=== PATIENT | male | born 1995 | race Two or more races ===

== ENCOUNTER 2019-03-04 17:14 | Emergency (ER) | payer MEDICAID ==
[~2019-03-04] VITALS: Ht 165.1 cm; Wt 77.1 kg
[2019-03-04 17:18] VITALS: BP 113/75
[2019-03-04] MEDS ORDERED: NKM (17:20)
--- NOTE | 2019-03-04 17:28 | NUR ---
ED Nurse Note: Pt came in S/P fall at work. Pt slipped and fell and hit his head on the floor. C/O Nausea and dizziness. Denies episodes of vomiting. Noted a small bump on posterior head. Pt is AAO x4, ambulates with steady gait.
--- NOTE | 2019-03-04 17:30 | NUR ---
ED Nurse Note: Pt taken to CT.
--- NOTE | 2019-03-04 17:37 | NUR ---
ED Nurse Note: Pt back from CT.
--- NOTE | 2019-03-04 18:10 | Emergency Room Report ---
History of Present Illness General Chief Complaint: Multiple Trauma/Fall Source: Patient Present Illness HPI 23-year-old male with no significant past medical history here complaining of headache, dizziness, nausea post fall on the back of his head at work times 3 hours ago. Patient denies loss of consciousness, blurred vision, vomiting, memory loss. The fall happened at work as patient and hit the back of his head and he was observed by coworkers. Does not eat anything after the injury and has not taken any medication for pain. As all other injuries, S OB, chest pain , position, neurological deficit eyes nosebleed Allergies: Coded Allergies: No Known Allergies (Unverified , 03/04/19) Patient History Past Surgical History: unable to obtain Pertinent Family History: none Immunizations: UTD Reviewed Nursing Documentation: PMH: Agreed; PSxH: Agreed Nursing Documentation-PMH Past Medical History: No Stated History Review of Systems All Other Systems: negative except mentioned in HPI Physical Exam Vital Signs Date Time Temp Pulse Resp B/P (MAP) Pulse Ox O2 Delivery O2 Flow Rate FiO2 03/04/19 17:18 98.1 72 15 113/75 96 Sp02 EP Interpretation: reviewed, normal General Appearance: normal inspection, no apparent distress, alert, GCS 15, non -toxic Head: normocephalic, other - Contusion on left occipital Eyes: bilateral eye normal inspection, bilateral eye PERRL, bilateral eye other - No nystagmus ENT: normal ENT inspection, hearing grossly normal, normal pharynx Neck: normal inspection, supple, thyroid normal, no bony tend Respiratory: normal inspection, chest non-tender, normal breath sounds, no rhonchi Cardiovascular #1: normal inspection, no gallop, no murmur Gastrointestinal: normal inspection, soft Musculoskeletal: back normal, digits/nails normal, gait/station normal, other - contusion left occipital Neurologic: normal inspection, alert, oriented x3, responsive, normal gait, speech normal Psychiatric: normal inspection, judgement/insight normal, memory normal Skin: normal inspection, normal color, no rash, well hydrated Lymphatic: normal inspection, no adenopathy Medical Decision Making PA Attestation Diagnosis and treatment plans were reviewed and discussed with my supervising physician Dr. Russo Diagnostic Impression: Primary Impression: Concussion ER Course 23-year-old male with no significant past medical history here complaining of headache, dizziness, nausea post fall on the back of his head at work times 3 hours ago. Patient denies loss of consciousness, blurred vision, vomiting, memory loss. The fall happened at work as patient and hit the back of his head and he was observed by coworkers. Does not eat anything after the injury and has not taken any medication for pain. As all other injuries, S OB, chest pain , position, neurological deficit eyes nosebleed Ddx considered but are not limited to cererbral hematoma, concussion Vital signs: are WNL, pt. is afebrile H&PE are most consistent with concussion ORders: head CT no contrast, tylenol 500mg, zofran ED INTERVENTIONS: None required at this time. DISCHARGE: At this time pt. is stable for d/c to home. Will provide printed patient care instructions, and any necessary prescriptions. Care plan and follow up instructions have been discussed with the patient prior to discharge. Avoid prolonged exposure to monitors and screens, follow with primary care provider if symptoms continue mental rest recommended CT/MRI/US Diagnostic Results CT/MRI/US Diagnostic Results : Imaging Test Ordered: head CT no contrast Impression CT HEAD Without Contrast: CT Head - Noncontrast Comparison: None Available Findings: No evidence of acute transcortical cerebral infarction or intracranial hemorrhage. No abnormal mass effect or midline shift. No acute extra-axial collections. Probable small left anterior temporal arachnoid cyst. No skull fracture identified. IMPRESSION: No evidence of acute intracranial abnormality. Last Vital Signs Date Time Temp Pulse Resp B/P (MAP) Pulse Ox O2 Delivery O2 Flow Rate FiO2 03/04/19 17:27 72 15 03/04/19 17:18 98.1 113/75 96 Disposition: HOME, SELF-CARE Condition: Stable Patient Instructions: Concussion, Adult, [id number] Additional Instructions: Follow-up with a primary care provider for further assessment of concussion, have mental rest for 2 days avoid strenuous physical activity Leslie Tong Mar 04, 2019 18:10
[2019-03-04] MEDS ORDERED: ZOFRAN4 M3 ORAL (18:22)
[2019-03-04] MEDS ORDERED: TYLENOL EXTRA500 MG ORAL (18:22)
[2019-03-04 18:43] VITALS: BP 121/80
--- NOTE | 2019-03-04 18:43 | NUR ---
ER DISCHARGE NOTE: Patient is cleared to be discharged per PA, pt is aox4, on room air, with stable vital signs. pt was given dc and prescription instructions, pt was able to verbalize understanding, pt id band removed. pt is able to ambulate with steady gait. pt took all belongings and left with all belongings.
--- NOTE | 2019-03-05 14:02 | Diagnostic Imaging Report ---
Indication: Head trauma, pain, status post fall Technique: Continuous helical CT scanning of the head was performed without intravenous contrast material. Axial and coronal 5 mm sections were generated. Radiation dose was minimized using automated exposure control Dose: Total Dose Length Product - DLP 1407.[address] Dose Index - CTDIvol(s) 70.38 mGy. Comparison: none Findings: The ventricular system is normal in size and configuration. There is no shift of midline structures. No abnormal extra-axial fluid collections are noted. There is no evidence of intracerebral bleeding. No other abnormal high or low density areas are noted within the brain. Visualized orbits and sinuses are unremarkable. The calvarium is intact. Normal guallpa-white differentiation. Impression: Normal CT scan of the head without contrast material. This agrees with the preliminary interpretation provided overnight by [facility]. The CT scanner at [facility] is accredited by the [employer] and the scans are performed using protocols designed to limit radiation exposure to as low as reasonably achievable to attain images of sufficient resolution adequate for diagnostic evaluation.
== END 2019-03-04 18:43 | disposition home or self-care (01) ==
LOC: EMR 17:50
DX: S06.0X9A Concussion with loss of consciousness of unspecified duration, initial encounter (principal); W19.XXXA Unspecified fall, initial encounter; Y92.9 Unspecified place or not applicable; Y99.0 Civilian activity done for income or pay; R11.0 Nausea
CPT/HCPCS: 70450; 99284

== ENCOUNTER 2019-05-14 01:47 | Emergency (ER) | payer MEDICAID ==
[~2019-05-14] VITALS: Ht 167.6 cm; Wt 79.4 kg
[~2019-05-14 01:47] MED LIST: NKM; TYLENOL EXTRA500 MG ORAL; ZOFRAN4 M3 ORAL
--- NOTE | 2019-05-14 01:58 | NUR ---
ED Nurse Note: pt came to ed c/o R eye pain x 1 day 09/06 pt statse he took 500mg tylenol earlier today and it helped a little bit. pt states s/s began during work. eye pain is a pulsating senation.
[2019-05-14 02:00] VITALS: BP 111/71
[2019-05-14] MEDS ORDERED: HYDROcodone/Acetamin 5/325 tab ORAL ONE (02:15)
[2019-05-14] MEDS ORDERED: HYDROcodone/Acetamin 5/325 tab ONE (02:17)
--- NOTE | 2019-05-14 02:17 | Emergency Room Report ---
History of Present Illness General Chief Complaint: Eye Problems Source: Patient Present Illness HPI This is a 23-year-old male with no past medical history. He presents with chief complaint of right-sided headache and eye pain. Onset was at work. Pain was throbbing in nature. He took some Tylenol got better. When he came home it got worse. Pain is throbbing in nature. Behind his right eye. Pain radiates up to the forehead and eyebrow area. Throbbing in nature. Also with tearing. Worse with lights. No nausea no vomiting. No fever chills. Pain is 8 out of 10. No focal deficit. Never had this problem before. Onset was gradual. Allergies: Coded Allergies: No Known Allergies (Unverified , 03/04/19) Patient History Past Medical History: see triage record, old chart reviewed Past Surgical History: none Pertinent Family History: none Social History: Denies: smoking Immunizations: other Reviewed Nursing Documentation: PMH: Agreed; PSxH: Agreed Nursing Documentation-PMH Past Medical History: No Stated History Review of Systems Eye: Denies: eye pain, blurred vision ENT: Denies: ear pain, nose congestion, throat swelling Respiratory: Denies: cough, shortness of breath Cardiovascular: Denies: chest pain, palpitations Gastrointestinal: Denies: abdominal pain, diarrhea, nausea, vomiting Musculoskeletal: Denies: back pain, joint pain Skin: Denies: rash Neurological: Reports: headache; Denies: numbness Endocrine: Denies: increased thirst, increased urine Hematologic/Lymphatic: Denies: easy bruising All Other Systems: negative except mentioned in HPI Physical Exam Vital Signs Date Time Temp Pulse Resp B/P (MAP) Pulse Ox O2 Delivery O2 Flow Rate FiO2 05/14/19 01:50 98.6 79 18 111/71 (84) 95 Vitals normal Sp02 EP Interpretation: reviewed, normal General Appearance: well appearing, no apparent distress, alert Head: normocephalic, atraumatic Eyes: right eye other - Mild injection of conjunctiva; bilateral eye PERRL, bilateral eye EOMI ENT: hearing grossly normal, normal pharynx Neck: full range of motion, supple, no meningismus Respiratory: chest non-tender, lungs clear, normal breath sounds Cardiovascular #1: regular rate, rhythm, no murmur Gastrointestinal: normal bowel sounds, non tender, no mass, no organomegaly, no bruit, non-distended Musculoskeletal: back normal, gait/station normal, normal range of motion Psychiatric: mood/affect normal Skin: warm/dry Medical Decision Making Diagnostic Impression: Primary Impression: Headache Qualified Codes: R51 - Headache Additional Impression: Sinusitis, acute Qualified Codes: J01.90 - Acute sinusitis, unspecified ER Course Patient presents with headache and eye pain. No evidence of bleed or meningitis. No neoplastic process. Better after my pain meds. CT scan showed diffuse pain sinusitis. Will discharge home. CT/MRI/US Diagnostic Results CT/MRI/US Diagnostic Results : Imaging Test Ordered: CT head Impression Read by radiologist. Diffuse sinusitis. Last Vital Signs Date Time Temp Pulse Resp B/P (MAP) Pulse Ox O2 Delivery O2 Flow Rate FiO2 05/14/19 02:00 98.6 79 18 111/71 95 Status: improved Disposition: HOME, SELF-CARE Condition: Stable Scripts Pseudoephedrine Hcl* (SUDAFED*) 60 Mg Tablet 60 MG PO Q6H, #30 TAB Prov: Abdirahman Wilkinson MD 05/14/19 Amoxicillin/Potassium Clav 875-125* (AUGMENTIN 875-125 TABLET*) 1 Each Tablet 1 TAB ORAL TWICE A DAY, #28 TAB Prov: Abdirahman Wilkinson MD 05/14/19 Ibuprofen* (MOTRIN*) 600 Mg Tablet 600 MG ORAL THREE TIMES A DAY, #30 TAB 0 Refills Prov: Abdirahman Wilkinson MD 05/14/19 Referrals: [facility],REFERRING (PCP) Additional Instructions: Follow-up with your doctor in 7 days. Return if worse. Abdirahman Wilkinson MD May 14, 2019 02:17
--- NOTE | 2019-05-14 02:29 | NUR ---
ED Nurse Note: pt went to ct
[2019-05-14] MEDS ORDERED: IBUPROFEN600 MG ORAL (02:34)
[2019-05-14] MEDS ORDERED: PSEUDOEPHEDRINE60 MG PO (03:22)
[2019-05-14] MEDS ORDERED: AUGMENTIN 875-1 EAC1 ORAL (03:22)
[2019-05-14 03:30] VITALS: BP 111/71
--- NOTE | 2019-05-14 03:30 | NUR ---
ER DISCHARGE NOTE: Patient is cleared to be discharged per ERMD, pt is aox4, on room air, with stable vital signs. pt was given dc and prescription instructions, pt was able to verbalize understanding, pt id band. pt is able to ambulate with steady gait. pt took all belongings.
--- NOTE | 2019-05-14 17:08 | Diagnostic Imaging Report ---
Indications: Headache, pulsing pain around right eye and forehead Technique: Spiral acquisitions obtained through the brain. Angled axial and coronal 5 x 5 mm slices were reconstructed. Total dose length product 1407.67 mGycm. CTDI vol(s) 70.38 mGy. Dose reduction achieved using automated exposure control Comparison: For 06/16/2019 Findings: No acute intracranial hemorrhage or edema. No mass effect nor midline shift. Normal guallpa-white differentiation. Normal-sized ventricles and extra axial CSF spaces. Intact calvarium. Visualized orbits are unremarkable. There is fairly extensive sphenoid, frontal, and ethmoid sinus disease. When compared to prior exam, the sinus disease is a new finding Impression: Negative for acute intracranial bleed or mass effect Sinus disease, new since prior study 03/04/2019 This agrees with the preliminary interpretation provided overnight by [facility]. The CT scanner at [facility] is accredited by the [employer] and the scans are performed using protocols designed to limit radiation exposure to as low as reasonably achievable to attain images of sufficient resolution adequate for diagnostic evaluation.
== END 2019-05-14 03:30 | disposition home or self-care (01) ==
LOC: EMR 02:10
DX: R51 Headache (principal); J01.90 Acute sinusitis, unspecified; H57.11 Ocular pain, right eye
CPT/HCPCS: 70450; 99284